=== PATIENT | male | born 1980 | race Caucasian/White ===

== ENCOUNTER 2017-06-06 14:31 | Emergency (ER) | payer SELFPAY ==
[2017-06-06 14:43] VITALS: BMI 31.4
[2017-06-06] MEDS ORDERED: SODIUM CHLORIDE 0.9% 1000 ML INFUS.BAG IV ONE (16:07)
--- NOTE | 2017-06-06 16:24 | PDOC ---
Attending Attestation - Resident Resident Name: Misael Sheikh - ED Attending Attestation I have performed the following: I have examined & evaluated the patient, The case was reviewed & discussed with the resident, I agree w/resident's findings & plan, Exceptions are as noted - HPI HPI: 37 yo M no significant PMH presents with epigastric and chest pain. He states that it woke him from sleep 5 days ago. Pain is L-sided, epigastric, radiating to the mid-back. Pain is sharp, constant, worse with deep breath and movement. He has been taking NSAIDs for the pain. No prior history of peptic ulcers, no recent travel, no recent long car rides, no recent immobilization. - Physicial Exam PE: GENERAL: Awake, alert, and fully oriented, in no acute distress. Appears uncomfortable with movement of torso. HEAD: No signs of trauma EYES: PERRLA, EOMI, sclera anicteric, conjunctiva clear ENT: Auricles normal inspection, hearing grossly normal, nares patent, oropharynx clear without exudates. Moist mucosa NECK: Normal ROM, supple, no lymphadenopathy, JVD, or masses LUNGS: Breath sounds equal, clear to auscultation bilaterally. No wheezes, and no crackles HEART: Regular rate and rhythm, normal S1 and S2, no murmurs, rubs or gallops ABDOMEN: Soft, nontender, normoactive bowel sounds. No guarding, no rebound. No masses MUSCULOSKELETAL: Normal range of motion, no edema. No clubbing or cyanosis. No cords, erythema. +Tenderness to L lower rib margin. NEUROLOGICAL: Cranial nerves II through XII grossly intact. Normal speech, normal gait SKIN: Warm, Dry, normal turgor, no lesions noted. +Erythema to L lower rib margin c/w history of K-Tape use and removal (distribution is a very discrete rectangular shape). - Medical Decision Making Pt is low risk for ACS or PE by clinical eval. He appears uncomfortable on exam , and is noted to have epigastric tenderness, lower rib margin tenderness, and mid-back tenderness. DDx includes PUD (especially in light of frequent NSAID use ), MSK pain, pancreatitis (although patient not a heavy drinker, no history of high triglycerides). Will obtain labs, CT to r/o perf. If all wnl, will encourage outpatient f/u, as PUD is likely, may need GI f/u for scope.
--- NOTE | 2017-06-06 16:28 | PDOC ---
History of Present Illness - General Chief Complaint: Chest Pain Stated Complaint: CHEST PAIN Time Seen by Provider: 06/06/17 15:55 History Source: Patient Exam Limitations: No Limitations - History of Present Illness Initial Comments: 06/06/17 16:08 The patient is a 37M with no PMH who presents to the ED with complaints of chest and abdominal pain. The patient states that he woke up Sunday morning out of his sleep because of a pain that starts in his L side, thoracic back and radiates to the anterior chest and epigastric area. He describes it as a sharp pain, constant, and does not get better with anything, but worse with breathing and movement. He has only taken motrin for the pain and this has not helped. The patient does not have a PMD since he moved to [place] 5 years ago from [facility]. Past History - Past Medical History Allergies/Adverse Reactions: Allergies Allergy/AdvReac Type Severity Reaction Status Date / Time No Known Allergies Allergy Verified 06/06/17 14:43 Home Medications: Ambulatory Orders Famotidine [Pepcid] 40 mg PO DAILY #14 tablet 06/06/17 Tramadol HCl 50 mg PO Q6H PRN #10 tablet MDD 4 tabs 06/06/17 Other medical history: denies - Suicide/Smoking/Psychosocial Hx Smoking History: Never smoked Information on smoking cessation initiated: No Hx Alcohol Use: Yes (occasional) Drug/Substance Use Hx: No Substance Use Type: None Review of Systems - Review of Systems Able to Perform ROS?: Yes Is the patient limited Turkish proficient: No Constitutional: No: Chills, Fever HEENTM: No: Eye Pain, Ear Pain Respiratory: Yes: Shortness of Breath (with deep breath). No: Cough Cardiac (ROS): No: Chest Pain, Palpitations, Chest Tightness ABD/GI: Yes: Other (epigastric abdominal pain). No: Nausea, Vomiting : No: Burning, Dysuria, Pain Musculoskeletal: No: Back Pain, Muscle Weakness Integumentary: No: Lesions, Rash Neurological: No: Headache, Numbness, Tingling, Weakness Psychiatric: No: Stressors, Change in Appetite *Physical Exam - Vital Signs Last Vital Signs Temp Pulse Resp BP Pulse Ox 98.2 F 80 18 146/85 100 06/06/17 14:40 06/06/17 14:40 06/06/17 14:40 06/06/17 14:40 06/06/17 14:40 - Physical Exam General Appearance: Yes: Nourished, Appropriately Dressed HEENT: positive: Normal Voice, Hearing Grossly Normal Respiratory/Chest: positive: Chest Tender (Posteriorly, paravertebral L sided thoracic), Lungs Clear, Normal Breath Sounds Cardiovascular: positive: Regular Rhythm, Regular Rate, S1, S2. negative: Diastolic Murmur, Systolic Murmur Gastrointestinal/Abdominal: positive: Tender (to deep palpatiopn ), Flat, Soft, Tenderness. negative: Distended, Guarding, Rebound Musculoskeletal: negative: CVA Tenderness (R), CVA Tenderness (L) Integumentary: positive: Dry, Warm, Other (No evidence of shingles rash in area of pain). negative: Clammy, Diaphoresis Neurologic: positive: Fully Oriented, Alert, Normal Mood/Affect, Motor Strength 5/5 Heart Score/ECG Review - ECG Impressions Comment:: 06/06/17 16:55 NSR. ED Treatment Course - LABORATORY CBC & Chemistry Diagram: 06/06/17 16:55 06/06/17 16:55 Medical Decision Making - Medical Decision Making 06/06/17 16:55 The patient is a 37M with no PMH who presents to the ED with L sided chest pain. On my differential is ACS, perforated PUD, GERD, PUD, PNA, chest wall pain. I will order the following and reassess when labs return: - CBC - CMP - Lipase - EKG - CXR I have ordered NS, protonix, pepcid, and zofran for the patient. 06/06/17 17:46 The patient states that he is not feeling better with the GI cocktail. He does not meet PERC criteria therefore a PE can be ruled out. 06/06/17 21:52 The patient is still complaining of pain. This has been discussed with and patient signed out to Dr. Willard. *DC/Admit/Observation/Transfer Diagnosis at time of Disposition: Abdominal pain - Discharge Dispostion Disposition: HOME Condition at time of disposition: Stable - Prescriptions Prescriptions: Famotidine [Pepcid] 40 mg PO DAILY #14 tablet Tramadol HCl 50 mg PO Q6H PRN #10 tablet MDD 4 tabs PRN Reason: Pain - Patient Instructions Printed Discharge Instructions: DI for Abdominal Pain-Adult Additional Instructions: Please call [phone] for a follow up appointment with a primary care doctor at [facility] within 1 week. This clinic is located at [address] [place] [address]. Return to the emergency department if you have new, worsening, or concerning symptoms. Print Language: TURKMEN
[2017-06-06] MEDS ORDERED: FAMOTIDINE 20 MG/50 ML IVPB 50 ML IVPB ONE ×2 (16:29→16:35)
[2017-06-06] MEDS ORDERED: ONDANSETRON 4 MG/2 ML VIAL IVPUSH ONE (16:29)
[2017-06-06] MEDS ORDERED: ONDANSETRON 4 MG/2 ML VIAL ONE (16:34)
[2017-06-06 17:05] LABS: BASOPHIL 0.6 % (0-2.0); EOSINOPHIL 1.3 % (0-4.5); MCH 28.5 pg (25.7-33.7); MCHC 33.3 g/dl (32.0-35.9); MEAN CELL VOLUME 85.6 fl (80-96); MEAN PLT VOLUME 8.2 fl (7.5-11.1); NEUTROPHILS 67.7 % (42.8-82.8); PLATELET COUNT 283 K/MM3 (134-434); RDW 13.3 % (11.9-15.9); WHITE BLOOD COUNT 8.7 K/mm3 (4.0-10.0)
[2017-06-06 17:18] VITALS: TEMP 97.7
[2017-06-06 17:30] LABS: ALBUMIN 3.4 g/dl (3.4-5.0); ANION GAP 8 (8-16); BILIRUBIN,TOTAL 0.2 mg/dL (0.2-1.0); CALCIUM 8.9 mg/dL (8.5-10.1); CO2 29 mmol/L (21-32); CREATININE 1.1 mg/dL (0.7-1.3); GLUCOSE,RANDOM 87 mg/dL (74-106); SGOT/AST 12 U/L (15-37); SGPT/ALT 28 U/L (12-78); TOT PROT 6.8 g/dl (6.4-8.2)
[2017-06-06 17:32] LABS: ALK PHOS 98 U/L (45-117); CPK 53 IU/L (39-308); TROPONIN I < 0.02 ng/ml (0.00-0.05)
[2017-06-06 23:01] LABS: URINE APPEARANCE CLEAR; URINE BILIRUBIN NEGATIVE (NEGATIVE); URINE BLOOD 1+ (NEGATIVE); URINE COLOR LTYELLOW; URINE GLUCOSE (UA) NEGATIVE (NEGATIVE); URINE KETONE NEGATIVE (NEGATIVE); URINE NITRITE NEGATIVE (NEGATIVE); URINE PROTEIN NEGATIVE (NEGATIVE); URINE UROBILINOGEN NEGATIVE mg/dL (0.2-1.0)
[2017-06-06 23:24] LABS: URINE MUCUS RARE; URINE RBC 12 /hpf (0-3); URINE WBC 1 /hpf (3-5)
--- NOTE | 2017-06-06 23:46 | PDOC ---
*Physical Exam - Vital Signs Last Vital Signs Temp Pulse Resp BP Pulse Ox 97.7 F 58 L 16 128/82 98 06/06/17 17:16 06/06/17 19:30 06/06/17 19:30 06/06/17 19:30 06/06/17 19:30 ED Treatment Course - LABORATORY CBC & Chemistry Diagram: 06/06/17 16:55 06/06/17 16:55 - ADDITIONAL ORDERS Additional order review: Laboratory Results 06/06/17 06/06/17 22:50 16:55 Sodium 141 Potassium 4.5 Chloride 104 Carbon Dioxide 29 Anion Gap 8 BUN 26 H Creatinine 1.1 Creat Clearance w eGFR > 60 Random Glucose 87 Calcium 8.9 Total Bilirubin 0.2 AST 12 L ALT 28 Alkaline Phosphatase 98 Creatine Kinase 53 Troponin I < 0.02 Total Protein 6.8 Albumin 3.4 Lipase 96 Urine Color Ltyellow Urine Appearance Clear Urine pH 5.0 Urine Protein Negative Urine Glucose (UA) Negative Urine Ketones Negative Urine Blood 1+ H Urine Nitrite Negative Urine Bilirubin Negative Urine Urobilinogen Negative Urine RBC 12 Urine WBC 1 Urine Mucus Rare 06/06/17 16:55 RBC 5.05 MCV 85.6 MCHC 33.3 RDW 13.3 MPV 8.2 Neutrophils % 67.7 Lymphocytes % 24.9 Monocytes % 5.5 Eosinophils % 1.3 Basophils % 0.6 - Medications Given in the ED: ED Medications Discontinued Medications Generic Name Dose Route Start Last Admin Trade Name Freq PRN Reason Stop Dose Admin Famotidine/Sodium Chloride 50 mls @ 100 mls/hr 06/06/17 16:29 06/06/17 16:45 Pepcid 20 Mg Premixed Ivpb - IVPB 06/06/17 16:58 100 mls/hr ONCE ONE Administration Ondansetron HCl 4 mg 06/06/17 16:29 06/06/17 16:45 Zofran Injection IVPUSH 06/06/17 16:30 4 mg ONCE ONE Administration Sodium Chloride 1,000 ml 06/06/17 16:07 06/06/17 16:45 Normal Saline - IV 06/06/17 16:08 1,000 ml ONCE ONE Administration Medical Decision Making - Medical Decision Making 06/06/17 23:36 Patient signed out to me by Dr. Espinal, pending labs. Labs thus far unremarkable including a negative lipase. On reevaluation the patient reporting epigastric pain radiating to the back. CT done with IV and PO contrast with no acute pathology. UA with blood and 12 rbc's however no stones visualized on the CT study. Possible passed kidney stone versus gastritis versus peptic ulcer disease versus MSK pain. All results discussed with the patient, and although we do not know the exact cause of his abdominal pain, I advised him to f/u with a PMD and GI doctor. Pt reports he is uninsured and thus will refer him to [facility]. I discussed the physical exam findings, ancillary test results and final diagnoses with the patient. I answered all of the patient's questions. The patient was satisfied with the care received and felt comfortable with the discharge plan and treatment plan. The patient will call their primary care physician within 24 hours to arrange follow-up and will return to the Emergency Department with any new, persistent or worsening symptoms. *DC/Admit/Observation/Transfer Diagnosis at time of Disposition: Abdominal pain - Discharge Dispostion Disposition: HOME Condition at time of disposition: Stable Admit: No - Patient Instructions Printed Discharge Instructions: DI for Abdominal Pain-Adult - Attestations Physician Attestion: 06/06/17 23:46 I, Dr. Gigi Willard MD, attest that this document has been prepared under my direction and personally reviewed by me in its entirety. I further attest, that it accurately reflects all work, treatment, procedures and medical decision -making performed by me.
[2017-06-07 00:18] VITALS: BP 130/84; PULSE 64
[2017-06-07 10:42] LABS: URINE LEUK ESTERASE Negative (NEGATIVE)
--- NOTE | 2017-06-07 11:57 | EKG ---
Test Reason : Blood Pressure : / mmHG Vent. Rate : 084 BPM Atrial Rate : 084 BPM P-R Int : 126 ms QRS Dur : 084 ms QT Int : 346 ms P-R-T Axes : 056 060 067 degrees QTc Int : 408 ms NORMAL SINUS RHYTHM NORMAL ECG NO PREVIOUS ECGS AVAILABLE Confirmed by KALEN BURRELL, AJ ([id number]) on 06/07/2017 11:56:42 AM Referred By: Confirmed By:AJ HIGUERA MD
== END 2017-06-07 00:19 | disposition home or self-care (01) ==
LOC: JER 14:31
PROC: 3E033GC Introduction of Other Therapeutic Substance into Peripheral Vein, Percutaneous Approach (ICD-10-PCS; principal; 2017-06-06)
PROC: 3E0337Z Introduction of Electrolytic and Water Balance Substance into Peripheral Vein, Percutaneous Approach (ICD-10-PCS; 2017-06-06)
DX: R10.13 Epigastric pain (principal)
CPT/HCPCS: 36415; 71010-TC; 74177-TC; 80053; 81003; 81015; 82550; 83690; 84484; 85025; 87086; 93005; 93010; 99284-25